=== PATIENT | male | born 1960 | race Caucasian/White ===

== ENCOUNTER → 2019-10-12 | Outpatient (CLI) | payer OTHER | LOC: SJCVC 16:09 | DX: R00.2 Palpitations (principal); R07.9 Chest pain, unspecified; G47.33 Obstructive sleep apnea (adult) (pediatric); I10 Essential (primary) hypertension; Z79.899 Other long term (current) drug therapy ==

== ENCOUNTER → 2019-11-19 | Outpatient (CLI) | payer OTHER | LOC: SJCVCIMAG 09:21 | DX: I10 Essential (primary) hypertension (principal); R00.0 Tachycardia, unspecified; E78.5 Hyperlipidemia, unspecified; K21.9 Gastro-esophageal reflux disease without esophagitis; G47.33 Obstructive sleep apnea (adult) (pediatric); Z90.49 Acquired absence of other specified parts of digestive tract; Z79.899 Other long term (current) drug therapy; Z87.891 Personal history of nicotine dependence ==

== ENCOUNTER → 2020-01-02 | Outpatient (CLI) | payer OTHER ==
[~2020-01-02] VITALS: Ht 172.7 cm; Wt 94.8 kg
[~2020-01-02] MED LIST: DICLOFENAC SOD50 M1 PO; EDLUAR10 MG PO; EZALLOR SPRINKL10 MG PO; FLOMAX0.4 MG PO; MECLIZINE HCL25 M1 PO; NEURONTIN300 MG PO; OMEPRAZOLE40 MG PO; OXYBUTYNIN 5 MG5 M2 PO; SINGULAIR 10 MG10 MG PO; ZESTRIL20 MG PO
--- NOTE | ~2020-01-02 | H ---
[facility] [place] [address] HISTORY AND PHYSICAL Name: Jennifer RAMOS Room #: [facility]#: [id number] Admission: 01/02/20 Attend Phys: Toney Juan Discharge: Date of : 60 Report #: [id number] THIS REPORT FOR: cc: Thierry Link MD,Thierry Juan,Toney Ramirez MD ~ CC: Thierry Juan HISTORY OF PRESENT ILLNESS: This is a 59-year-old male who was seen in the office with complaints of chest discomfort. Noninvasive evaluation yielded the presence of high risk ischemic burden and, therefore, cardiac catheterization is recommended. PHYSICAL EXAMINATION: HEENT: Normocephalic, atraumatic. Pupils are equal, round, reactive to light and accommodation. Extraocular muscles are intact. Sclerae and conjunctivae are anicteric. NECK: JVD is normal. Carotid upstrokes are bilaterally symmetrical. No bruits are heard. No thyromegaly. No lymphadenopathy. LUNGS: Clear to auscultation. No wheezes, rhonchi or crackles. No CVA tenderness. CARDIAC: Demonstrates a regular rhythm. Normal first and second heart sounds. No ventricular or atrial gallops, no rubs noted. No murmurs. No lifts or heaves, PMI normal. ABDOMEN: Soft, nontender, nondistended. Normal bowel sounds. EXTREMITIES: Without cyanosis, clubbing or edema. Distal pulses are intact. DTR symmetrical. NEUROLOGIC: Cranial nerves 2-12 are grossly normal and symmetrical. PSYCHIATRIC: Alert, oriented with normal affect. SKIN: Warm and dry. IMPRESSION: Chest pains with abnormal perfusion scan and noninvasive ischemic workup. In view of this, I am going to proceed with cardiac catheterization. The risks, complications and alternatives of catheterization, coronary angiography, percutaneous revascularization and conscious sedation have been discussed with the patient and family. He voices understanding and wished to proceed. By: [id number] Toney Juan MD /nt
[2020-01-02 11:45] LABS: HEMATOCRIT 42.3 % (42.0-52.0); HEMOGLOBIN 14.4 gm/dL (14.0-18.0); RBC 4.5 mil/uL (4.50-6.00); RDW 13.6 % (10.5-14.5); WBC 5.6 thou/uL (4.0-11.0)
[2020-01-02 11:53] LABS: CALCIUM 8.8 mg/dL (8.5-10.1); CREATININE 1.4 mg/dL (0.7-1.3); POTASSIUM 4.3 mmol/L (3.5-5.1)
[2020-01-02 12:02] VITALS: BP 96/58
== END | disposition home or self-care (01) ==
LOC: CATH 11-23 08:50
PROVIDERS: Internal Medicine
DX: R07.9 Chest pain, unspecified (principal); I10 Essential (primary) hypertension; E78.5 Hyperlipidemia, unspecified; J44.9 Chronic obstructive pulmonary disease, unspecified; Z98.890 Other specified postprocedural states; Z79.899 Other long term (current) drug therapy; Z90.49 Acquired absence of other specified parts of digestive tract; Z87.19 Personal history of other diseases of the digestive system

== ENCOUNTER → 2020-02-11 | Outpatient (CLI) | payer OTHER | LOC: SJCVC 14:49 | PROVIDERS: ATTEND Internal Medicine | DX: I25.10 Atherosclerotic heart disease of native coronary artery without angina pectoris (principal); I10 Essential (primary) hypertension; E78.5 Hyperlipidemia, unspecified; K21.9 Gastro-esophageal reflux disease without esophagitis; Z79.899 Other long term (current) drug therapy; Z82.49 Family history of ischemic heart disease and other diseases of the circulatory system; Z87.891 Personal history of nicotine dependence ==

== ENCOUNTER → 2020-08-18 | Outpatient (CLI) | payer OTHER | LOC: SJCVC 15:10 | PROVIDERS: ATTEND Internal Medicine | DX: R42 Dizziness and giddiness (principal); I25.10 Atherosclerotic heart disease of native coronary artery without angina pectoris; I10 Essential (primary) hypertension; M79.604 Pain in right leg; M79.605 Pain in left leg; E78.5 Hyperlipidemia, unspecified; R09.89 Other specified symptoms and signs involving the circulatory and respiratory systems; K21.9 Gastro-esophageal reflux disease without esophagitis; Z79.899 Other long term (current) drug therapy; Z87.891 Personal history of nicotine dependence ==

== ENCOUNTER → 2020-09-08 | Outpatient (CLI) | payer OTHER | LOC: SJCVCIMAG 09:08 | PROVIDERS: ATTEND Internal Medicine | DX: I73.9 Peripheral vascular disease, unspecified (principal); M79.604 Pain in right leg; M79.605 Pain in left leg; R09.89 Other specified symptoms and signs involving the circulatory and respiratory systems; I25.10 Atherosclerotic heart disease of native coronary artery without angina pectoris; R42 Dizziness and giddiness; I10 Essential (primary) hypertension; K21.9 Gastro-esophageal reflux disease without esophagitis; Z90.49 Acquired absence of other specified parts of digestive tract; Z98.890 Other specified postprocedural states; Z79.899 Other long term (current) drug therapy; Z87.891 Personal history of nicotine dependence ==